=== PATIENT | male | born 1955 | race Caucasian/White ===

== ENCOUNTER → 2017-07-26 10:07 | Outpatient (CLI) | payer BC, SELFPAY ==
[2017-07-26 10:45] LABS: Basophils % 0.5 % (0.1-2.0); Eosinophils # 0.1 K/mm3 (0.0-0.4); Eosinophils % 1.5 % (0.1-12.0); Hemoglobin 14.4 g/dL (14.1-18.0); Lymphocytes # 1.4 K/mm3 (0.7-4.5); Lymphocytes % 33.9 K/mm3 (10-50); Mean Corpuscular HGB Conc 33.4 g/dL (31.8-35.4); Mean Corpuscular Hemoglobin 31.2 pg (27.0-31.2); Mean Corpuscular Volume 93.3 fl (80-94); Mean Platelet Volume 8.2 fl (7.4-10.4); Monocytes # 0.2 K/mm3 (0.1-1.0); Monocytes % 4.7 % (1.7-9.3); Neutrophils # 2.4 K/mm3 (1.8-7.8); Neutrophils % 59.3 % (37.0-80.0); Platelet Count 179 K/mm3 (142-424); Red Blood Count 4.61 M/mm3 (4.60-6.20); White Blood Count 4.1 K/mm3 (4.8-10.8)
[2017-07-26 12:03] LABS: Alanine Aminotransferase 31 U/L (12-78); Albumin Level 4.1 gm/dL (3.4-5.0); Albumin/Globulin Ratio 1.5 (1.1-1.8); Alkaline Phosphatase 48 U/L (46-116); Anion Gap 10.5 mEq/L (5-15); Aspartate Amino Transferase 19 U/L (15-37); Bilirubin,Total 0.2 mg/dL (0.2-1.0); Blood Urea Nitrogen 12 mg/dL (7-18); Calcium 9.4 mg/dL (8.5-10.1); Carbon Dioxide 30 mmol/L (21.0-32.0); Chloride 109 mmol/L (98-107); Chol/HDL Ratio 2.1 (1-3.5); Cholesterol 124 mg/dL (140-200); Creatine Kinase 147 U/L (39-308); Estimated Glomerular Filt Rate 86 ml/min (>60); GFR (African American) 104 ML/MIN (>60); Globulin 2.7 gm/dl (1.3-3.2); Glucose 118 mg/dL (74-106); HDL Cholesterol 58 mg/dL (27-67); LDL Cholesterol 60 mg/dL (0-130); Potassium 4.5 mmoL/L (3.5-5.1); Sodium 145 mmol/L (136-145); Total Protein,Serum 6.8 gm/dL (6.4-8.2); Triglycerides 28 mg/dL (30-200); VLDL Cholesterol 6 mg/dL (0-40)
[2017-07-27 06:04] LABS: Vitamin D 25 Hydroxy 39.6 ng/mL (30.0-100.0)
== END ==
PROVIDERS: Visit Provider Internal Medicine Adolescent Medicine
DX: E78.5 Hyperlipidemia, unspecified (principal); I25.10 Atherosclerotic heart disease of native coronary artery without angina pectoris; M79.1 Myalgia
CPT/HCPCS: 36415; 80053; 80061; 82550; 82652; 85025

== ENCOUNTER → 2018-03-01 08:37 | Outpatient (CLI) | payer BC, SELFPAY ==
--- NOTE | 2018-03-01 08:57 | XR_ITS ---
XR hand LT min 3V HISTORY: Posttraumatic pain ITS.REASON: INJURY OF LEFT RING FINGER ORDERING PHYSICIAN: Hector Patel MD PATIENT AGE: 62 years COMPARISON: None FINDINGS: There is posterior dislocation of the distal phalanx of the fourth finger. No obvious fracture. Otherwise negative. IMPRESSION: Posterior dislocation of the distal phalanx of the ring finger
[2018-03-01 09:08] LABS: Basophils % 0.6 % (0.1-2.0); Eosinophils # 0.1 K/mm3 (0.0-0.4); Eosinophils % 1.7 % (0.1-12.0); Hematocrit 42.5 % (42.0-52.0); Hemoglobin 13.9 g/dL (14.1-18.0); Lymphocytes # 1.4 K/mm3 (0.7-4.5); Lymphocytes % 29.8 % (10-50); Mean Corpuscular HGB Conc 32.8 g/dL (31.8-35.4); Mean Corpuscular Volume 94.7 fl (80-94); Mean Platelet Volume 7.9 fl (7.4-10.4); Monocytes # 0.3 K/mm3 (0.1-1.0); Monocytes % 6.1 % (1.7-9.3); Neutrophils # 2.9 K/mm3 (1.8-7.8); Neutrophils % 61.7 % (37.0-80.0); Platelet Count 171 K/mm3 (142-424); Red Blood Count 4.49 M/mm3 (4.60-6.20); Red Cell Distribution Width 13.3 % (11.5-17.5); White Blood Count 4.6 K/mm3 (4.8-10.8)
[2018-03-01 09:57] LABS: Alanine Aminotransferase 30 U/L (12-78); Albumin Level 3.9 gm/dL (3.4-5.0); Albumin/Globulin Ratio 1.4 (1.1-1.8); Alkaline Phosphatase 43 U/L (46-116); Anion Gap 11.7 mEq/L (5-15); Aspartate Amino Transferase 12 U/L (15-37); Bilirubin,Total 0.3 mg/dL (0.2-1.0); Blood Urea Nitrogen 17 mg/dL (7-18); Calcium 8.9 mg/dL (8.5-10.1); Carbon Dioxide 30 mmol/L (21.0-32.0); Chloride 105 mmol/L (98-107); Chol/HDL Ratio 2.1 (1-3.5); Cholesterol 143 mg/dL (140-200); Creatinine,Serum 0.93 mg/dL (0.70-1.30); Estimated Glomerular Filt Rate 82 ml/min (>60); GFR (African American) 100 ML/MIN (>60); Globulin 2.8 gm/dl (1.3-3.2); Glucose 119 mg/dL (74-106); HDL Cholesterol 69 mg/dL (27-67); LDL Cholesterol 66 mg/dL (0-130); Potassium 4.7 mmoL/L (3.5-5.1); Sodium 142 mmol/L (136-145); Total Protein,Serum 6.7 gm/dL (6.4-8.2); Triglycerides 39 mg/dL (30-200); VLDL Cholesterol 8 mg/dL (0-40)
== END ==
LOC: LAB 08:38 → RAD 08:51
PROVIDERS: PCP Internal Medicine Adolescent Medicine; Visit Provider Internal Medicine Adolescent Medicine
DX: E78.5 Hyperlipidemia, unspecified (principal); I25.10 Atherosclerotic heart disease of native coronary artery without angina pectoris; S60.945A Unspecified superficial injury of left ring finger, initial encounter
CPT/HCPCS: 36415; 73130; 80053; 80061; 85025

== ENCOUNTER → 2019-01-18 11:08 | Outpatient (CLI) | payer BC, SELFPAY ==
[2019-01-18 11:33] LABS: Basophils % 0.4 % (0.1-2.0); Eosinophils # 0.1 K/mm3 (0.0-0.4); Hematocrit 41.1 % (42.0-52.0); Hemoglobin 13.1 g/dL (14.1-18.0); Lymphocytes # 1.2 K/mm3 (0.7-4.5); Lymphocytes % 17.3 % (10-50); Mean Corpuscular HGB Conc 31.9 g/dL (31.8-35.4); Mean Corpuscular Volume 94.1 fl (80-94); Mean Platelet Volume 8.4 fl (7.4-10.4); Monocytes # 0.3 K/mm3 (0.1-1.0); Monocytes % 4.1 % (1.7-9.3); Neutrophils # 5.2 K/mm3 (1.8-7.8); Neutrophils % 77.1 % (37.0-80.0); Platelet Count 183 K/mm3 (142-424); Red Blood Count 4.36 M/mm3 (4.60-6.20); Red Cell Distribution Width 13.5 % (11.5-17.5); White Blood Count 6.7 K/mm3 (4.8-10.8)
[2019-01-18 13:23] LABS: Alanine Aminotransferase 22 U/L (12-78); Albumin Level 4.1 gm/dL (3.4-5.0); Albumin/Globulin Ratio 1.5 (1.1-1.8); Alkaline Phosphatase 49 U/L (46-116); Anion Gap 13.3 mEq/L (5-15); Aspartate Amino Transferase 18 U/L (15-37); Bilirubin,Total 0.6 mg/dL (0.2-1.0); Blood Urea Nitrogen 13 mg/dL (7-18); Calcium 9.5 mg/dL (8.5-10.1); Carbon Dioxide 28 mmol/L (21.0-32.0); Chloride 104 mmol/L (98-107); Chol/HDL Ratio 1.9 (1-3.5); Cholesterol 129 mg/dL (140-200); Estimated Glomerular Filt Rate 85 ml/min (>60); GFR (African American) 103 ML/MIN (>60); Globulin 2.7 gm/dl (1.3-3.2); Glucose 108 mg/dL (74-106); HDL Cholesterol 67 mg/dL (27-67); LDL Cholesterol 54 mg/dL (0-130); Potassium 4.3 mmoL/L (3.5-5.1); Sodium 141 mmol/L (136-145); Total Protein,Serum 6.8 gm/dL (6.4-8.2); Triglycerides 41 mg/dL (30-200); VLDL Cholesterol 8 mg/dL (0-40)
== END ==
PROVIDERS: Visit Provider Nurse Practitioner Family
DX: E78.5 Hyperlipidemia, unspecified (principal); I25.10 Atherosclerotic heart disease of native coronary artery without angina pectoris
CPT/HCPCS: 36415; 80053; 80061; 85025

== ENCOUNTER → 2019-11-13 09:44 | Outpatient (CLI) | payer BC, SELFPAY ==
[2019-11-13 10:04] LABS: Basophils % 0.7 % (0.1-2.0); Eosinophils # 0.2 K/mm3 (0.0-0.4); Eosinophils % 3.6 % (0.1-12.0); Hematocrit 39.5 % (42.0-52.0); Hemoglobin 14.2 g/dL (14.1-18.0); Lymphocytes % 37.4 % (10-50); Mean Corpuscular HGB Conc 35.9 g/dL (31.8-35.4); Mean Corpuscular Hemoglobin 32.4 pg (27.0-31.2); Mean Corpuscular Volume 90.4 fl (80-94); Mean Platelet Volume 9.4 fl (7.4-10.4); Monocytes # 0.3 K/mm3 (0.1-1.0); Monocytes % 4.7 % (1.7-9.3); Neutrophils # 2.9 K/mm3 (1.8-7.8); Neutrophils % 53.5 % (37.0-80.0); Platelet Count 124 K/mm3 (142-424); Red Blood Count 4.36 M/mm3 (4.60-6.20); Red Cell Distribution Width 13.4 % (11.5-17.5); White Blood Count 5.4 K/mm3 (4.8-10.8)
[2019-11-13 10:31] LABS: Alanine Aminotransferase 19 U/L (12-78); Albumin Level 4.4 g/dl (3.5-5.0); Albumin/Globulin Ratio 1.8 (1.1-1.8); Alkaline Phosphatase 44 U/L (38-126); Anion Gap 12.5 mEq/L (5-15); Aspartate Amino Transferase 25 U/L (17-59); Bilirubin,Total 0.4 mg/dl (0.2-1.3); Blood Urea Nitrogen 16 mg/dl (9-20); Calcium 9.5 mg/dl (8.4-10.2); Carbon Dioxide 32 mmol/L (22.0-30.0); Chloride 102 mmol/L (98-107); Chol/HDL Ratio 1.9 (1-3.5); Cholesterol 128 mg/dl (140-200); Estimated Glomerular Filt Rate 98 ml/min (>60); GFR (African American) 118 ML/MIN (>60); Globulin 2.4 g/dL (1.3-3.2); Glucose 115 mg/dl (74-100); HDL Cholesterol 66 mg/dl (40-60); Potassium 4.5 mmoL/L (3.5-5.1); Sodium 142 mmol/L (136-145); Total Protein,Serum 6.8 g/dl (6.3-8.2); Triglycerides 40 mg/dl (30-150); VLDL Cholesterol 8 mg/dL (0-40)
[2019-11-13 10:42] LABS: Direct LDL Cholesterol 59.82 mg/dL (100-129)
[2019-11-13 11:02] LABS: Prostate Specific Ag Screen 1.7 ng/ml (0.0-4.0)
== END ==
PROVIDERS: Visit Provider Internal Medicine Adolescent Medicine
DX: E78.5 Hyperlipidemia, unspecified (principal); I25.10 Atherosclerotic heart disease of native coronary artery without angina pectoris; Z12.5 Encounter for screening for malignant neoplasm of prostate
CPT/HCPCS: 36415; 80053; 80061; 85025; G0103

== ENCOUNTER → 2020-09-12 09:17 | Outpatient (CLI) | payer BC, SELFPAY ==
[2020-09-12 10:13] LABS: Basophils % 0.7 % (0.1-2.0); Eosinophils # 0.1 K/mm3 (0.0-0.4); Eosinophils % 1.9 % (0.1-12.0); Hematocrit 38.4 % (42.0-52.0); Lymphocytes # 1.7 K/mm3 (0.7-4.5); Lymphocytes % 28.4 % (10-50); Mean Corpuscular HGB Conc 33.9 g/dL (31.8-35.4); Mean Corpuscular Hemoglobin 31.3 pg (27.0-31.2); Mean Corpuscular Volume 92.4 fl (80-94); Mean Platelet Volume 8.6 fl (7.4-10.4); Monocytes # 0.4 K/mm3 (0.1-1.0); Monocytes % 5.9 % (1.7-9.3); Neutrophils # 3.7 K/mm3 (1.8-7.8); Platelet Count 173 K/mm3 (142-424); Red Blood Count 4.15 M/mm3 (4.60-6.20); Red Cell Distribution Width 13.5 % (11.5-17.5); White Blood Count 5.9 K/mm3 (4.8-10.8)
[2020-09-12 10:26] LABS: Chloride 104 mmol/L (98-107); Potassium 4.6 mmoL/L (3.5-5.1); Sodium 139 mmol/L (136-145)
[2020-09-12 10:29] LABS: Alanine Aminotransferase 21 U/L (12-78); Albumin Level 4.4 g/dl (3.5-5.0); Albumin/Globulin Ratio 1.8 (1.1-1.8); Alkaline Phosphatase 54 U/L (38-126); Anion Gap 12.6 mEq/L (5-15); Aspartate Amino Transferase 26 U/L (17-59); Bilirubin,Total 0.5 mg/dl (0.2-1.3); Blood Urea Nitrogen 19 mg/dl (9-20); Calcium 9.2 mg/dl (8.4-10.2); Carbon Dioxide 27 mmol/L (22.0-30.0); Cholesterol 126 mg/dl (140-200); Estimated Glomerular Filt Rate 85 ml/min (>60); GFR (African American) 103 ML/MIN (>60); Globulin 2.4 g/dL (1.3-3.2); Glucose 114 mg/dl (74-100); Total Protein,Serum 6.8 g/dl (6.3-8.2); Triglycerides 65 mg/dl (30-150); VLDL Cholesterol 13 mg/dL (0-40)
[2020-09-12 10:30] LABS: Chol/HDL Ratio 2.4 (1-3.5); HDL Cholesterol 53 mg/dl (40-60)
[2020-09-12 10:41] LABS: Direct LDL Cholesterol 56.02 mg/dL (100-129)
== END ==
PROVIDERS: Visit Provider Internal Medicine Adolescent Medicine
DX: I25.10 Atherosclerotic heart disease of native coronary artery without angina pectoris (principal); E78.5 Hyperlipidemia, unspecified
CPT/HCPCS: 36415; 80053; 80061; 85025

== ENCOUNTER → 2021-01-09 10:25 | Outpatient (CLI) | payer MEDICARE, BC, SELFPAY ==
[2021-01-09 10:39] LABS: Basophils # 0.1 K/mm3 (0-0.2); Eosinophils # 0.1 K/mm3 (0.0-0.4); Eosinophils % 2.2 % (0.1-12.0); Hematocrit 42.8 % (42.0-52.0); Hemoglobin 13.9 g/dL (14.1-18.0); Lymphocytes # 1.6 K/mm3 (0.7-4.5); Lymphocytes % 28.8 % (10-50); Mean Corpuscular HGB Conc 32.5 g/dL (31.8-35.4); Mean Corpuscular Hemoglobin 31.2 pg (27.0-31.2); Mean Corpuscular Volume 95.9 fl (80-94); Mean Platelet Volume 9.5 fl (7.4-10.4); Monocytes # 0.3 K/mm3 (0.1-1.0); Monocytes % 5.8 % (1.7-9.3); Neutrophils # 3.4 K/mm3 (1.8-7.8); Neutrophils % 62.2 % (37.0-80.0); Platelet Count 170 K/mm3 (142-424); Red Blood Count 4.46 M/mm3 (4.60-6.20); Red Cell Distribution Width 14.1 % (11.5-17.5); White Blood Count 5.5 K/mm3 (4.8-10.8)
[2021-01-09 12:22] LABS: Chloride 105 mmol/L (98-107); Potassium 4.5 mmoL/L (3.5-5.1); Sodium 140 mmol/L (136-145)
[2021-01-09 12:24] LABS: Blood Urea Nitrogen 17 mg/dl (9-20); Estimated Glomerular Filt Rate 97 ml/min (>60); GFR (African American) 117 ML/MIN (>60)
[2021-01-09 12:25] LABS: Alanine Aminotransferase 19 U/L (12-78); Albumin Level 4.1 g/dl (3.5-5.0); Albumin/Globulin Ratio 1.7 (1.1-1.8); Alkaline Phosphatase 63 U/L (38-126); Anion Gap 12.5 mEq/L (5-15); Aspartate Amino Transferase 30 U/L (17-59); Bilirubin,Total 0.5 mg/dl (0.2-1.3); Calcium 9.5 mg/dl (8.4-10.2); Carbon Dioxide 27 mmol/L (22.0-30.0); Chol/HDL Ratio 2.4 (1-3.5); Cholesterol 129 mg/dl (140-200); Globulin 2.4 g/dL (1.3-3.2); Glucose 92 mg/dl (74-100); HDL Cholesterol 54 mg/dl (40-60); Total Protein,Serum 6.5 g/dl (6.3-8.2); Triglycerides 75 mg/dl (30-150); VLDL Cholesterol 15 mg/dL (0-40)
== END ==
PROVIDERS: Visit Provider Internal Medicine Adolescent Medicine
DX: I25.10 Atherosclerotic heart disease of native coronary artery without angina pectoris (principal); E78.5 Hyperlipidemia, unspecified
CPT/HCPCS: 36415; 80053; 80061; 85025

== ENCOUNTER → 2021-03-13 10:19 | Outpatient (CLI) | payer MEDICARE, BC, SELFPAY ==
--- NOTE | 2021-03-13 10:33 | XR_ITS ---
PROCEDURE: XR CHEST 2V CLINICAL HISTORY: LOBAR PNEUMONIA COMPARISON: No exams were available for comparison FINDINGS: The cardiomediastinal silhouette and pulmonary vascularity are within normal limits. Increased markings left lung base posteriorly consistent with an area of atelectasis or infiltrate. Coronary artery calcification noted. There is minimal blunting of the left CP angle suggesting trace effusion. No acute bony abnormalities. IMPRESSION: Left posterior basilar atelectasis or infiltrate with possible trace effusion Dictated by: Alexander Medina MD 03/13/2021 16:38 Alexander Medina MD in [place] 03/13/2021 16:38
[2021-03-13 11:03] LABS: Basophils # 0.1 K/mm3 (0-0.2); Basophils % 0.6 % (0.1-2.0); Eosinophils # 0.1 K/mm3 (0.0-0.4); Eosinophils % 1.3 % (0.1-12.0); Hematocrit 44.7 % (42.0-52.0); Hemoglobin 15.4 g/dL (14.1-18.0); Lymphocytes # 1.4 K/mm3 (0.7-4.5); Lymphocytes % 16.4 % (10-50); Mean Corpuscular HGB Conc 34.4 g/dL (31.8-35.4); Mean Corpuscular Hemoglobin 31.9 pg (27.0-31.2); Mean Corpuscular Volume 92.8 fl (80-94); Mean Platelet Volume 8.2 fl (7.4-10.4); Monocytes # 0.4 K/mm3 (0.1-1.0); Monocytes % 4.6 % (1.7-9.3); Neutrophils # 6.4 K/mm3 (1.8-7.8); Neutrophils % 77.1 % (37.0-80.0); Platelet Count 174 K/mm3 (142-424); Red Blood Count 4.82 M/mm3 (4.60-6.20); Red Cell Distribution Width 13.3 % (11.5-17.5); White Blood Count 8.3 K/mm3 (4.8-10.8)
[2021-03-13 12:09] LABS: Alanine Aminotransferase 21 U/L (12-78); Albumin Level 4.7 g/dl (3.5-5.0); Albumin/Globulin Ratio 1.6 (1.1-1.8); Alkaline Phosphatase 70 U/L (38-126); Aspartate Amino Transferase 28 U/L (17-59); Bilirubin,Total 0.8 mg/dl (0.2-1.3); Blood Urea Nitrogen 13 mg/dl (9-20); Calcium 9.8 mg/dl (8.4-10.2); Carbon Dioxide 30 mmol/L (22.0-30.0); Chloride 97 mmol/L (98-107); Estimated Glomerular Filt Rate 75 ml/min (>60); GFR (African American) 91 ML/MIN (>60); Globulin 2.9 g/dL (1.3-3.2); Glucose 124 mg/dl (74-100); Sodium 136 mmol/L (136-145); Total Protein,Serum 7.6 g/dl (6.3-8.2)
== END ==
PROVIDERS: Visit Provider Internal Medicine Adolescent Medicine
DX: J18.1 Lobar pneumonia, unspecified organism (principal)
CPT/HCPCS: 36415; 71046; 80053; 85025; 87040; 87070; 87205

== ENCOUNTER → 2022-01-14 10:48 | Outpatient (CLI) | payer MEDICARE, BC, SELFPAY ==
[2022-01-14 11:36] LABS: Basophils % 0.5 % (0.1-2.0); Eosinophils # 0.1 K/mm3 (0.0-0.4); Eosinophils % 1.8 % (0.1-12.0); Hematocrit 42.7 % (42.0-52.0); Hemoglobin 13.3 g/dL (14.1-18.0); Lymphocytes # 1.3 K/mm3 (0.7-4.5); Lymphocytes % 27.4 % (10-50); Mean Corpuscular HGB Conc 31.3 g/dL (31.8-35.4); Mean Corpuscular Hemoglobin 30.4 pg (27.0-31.2); Mean Corpuscular Volume 97.3 fl (80-94); Mean Platelet Volume 8.6 fl (7.4-10.4); Monocytes # 0.3 K/mm3 (0.1-1.0); Monocytes % 6.5 % (1.7-9.3); Neutrophils % 63.8 % (37.0-80.0); Platelet Count 147 K/mm3 (142-424); Red Blood Count 4.39 M/mm3 (4.60-6.20); White Blood Count 4.8 K/mm3 (4.8-10.8)
[2022-01-14 12:08] LABS: Hemoglobin A1C 5.9 % (4.0-6.0)
[2022-01-14 12:22] LABS: Chloride 101 mmol/L (98-107); Potassium 4.7 mmoL/L (3.5-5.1); Sodium 139 mmol/L (136-145)
[2022-01-14 12:25] LABS: Alanine Aminotransferase 21 U/L (12-78); Albumin Level 4.5 g/dl (3.5-5.0); Alkaline Phosphatase 51 U/L (38-126); Anion Gap 12.7 mEq/L (5-15); Aspartate Amino Transferase 30 U/L (17-59); Bilirubin,Total 0.5 mg/dl (0.2-1.3); Blood Urea Nitrogen 19 mg/dl (9-20); Carbon Dioxide 30 mmol/L (22.0-30.0); Cholesterol 128 mg/dl (140-200); Estimated Glomerular Filt Rate 84 ml/min (>60); GFR (African American) 102 ML/MIN (>60); Globulin 2.3 g/dL (1.3-3.2); Total Protein,Serum 6.8 g/dl (6.3-8.2); Triglycerides 60 mg/dl (30-150); VLDL Cholesterol 12 mg/dL (0-40)
[2022-01-14 12:26] LABS: Calcium 9.2 mg/dl (8.4-10.2); Chol/HDL Ratio 2.5 (1-3.5); Glucose 100 mg/dl (74-100); HDL Cholesterol 52 mg/dl (40-60)
[2022-01-14 12:37] LABS: Direct LDL Cholesterol 55.13 mg/dL (100-129)
== END ==
PROVIDERS: PCP Internal Medicine Adolescent Medicine; Visit Provider Internal Medicine Adolescent Medicine
DX: I25.10 Atherosclerotic heart disease of native coronary artery without angina pectoris (principal); E78.5 Hyperlipidemia, unspecified; K21.00 Gastro-esophageal reflux disease with esophagitis, without bleeding; Z79.899 Other long term (current) drug therapy
CPT/HCPCS: 36415; 80053; 80061; 83036; 85025

== ENCOUNTER → 2022-12-31 08:51 | Outpatient (CLI) | payer MEDICARE, BC, SELFPAY ==
[2022-12-31 09:27] LABS: Basophils % 0.6 % (0.1-2.0); Eosinophils # 0.1 K/mm3 (0.0-0.4); Eosinophils % 2.4 % (0.1-12.0); Hematocrit 42.5 % (42.0-52.0); Hemoglobin 13.4 g/dL (14.1-18.0); Lymphocytes # 1.4 K/mm3 (0.7-4.5); Lymphocytes % 44.4 % (10-50); Mean Corpuscular HGB Conc 31.6 g/dL (31.8-35.4); Mean Corpuscular Hemoglobin 30.8 pg (27.0-31.2); Mean Corpuscular Volume 97.5 fl (80-94); Mean Platelet Volume 9.6 fl (7.4-10.4); Monocytes # 0.2 K/mm3 (0.1-1.0); Monocytes % 6.2 % (1.7-9.3); Neutrophils # 1.5 K/mm3 (1.8-7.8); Neutrophils % 46.3 % (37.0-80.0); Platelet Count 116 K/mm3 (142-424); Red Blood Count 4.36 M/mm3 (4.60-6.20); Red Cell Distribution Width 13.3 % (11.5-17.5); White Blood Count 3.3 K/mm3 (4.8-10.8)
[2022-12-31 09:53] LABS: Anion Gap 11.6 mEq/L (5-15); Blood Urea Nitrogen 18 mg/dl (9-20); Calcium 8.9 mg/dl (8.4-10.2); Carbon Dioxide 27 mmol/L (22.0-30.0); Chloride 106 mmol/L (98-107); Estimated Glomerular Filt Rate 75 ml/min (>60); GFR (African American) 90 ML/MIN (>60); Glucose 105 mg/dl (74-100); Potassium 4.6 mmoL/L (3.5-5.1); Sodium 140 mmol/L (136-145)
== END ==
PROVIDERS: PCP Internal Medicine Adolescent Medicine; Visit Provider Student in an Organized Health Care Education/Training Program
DX: Z01.818 Encounter for other preprocedural examination (principal)
CPT/HCPCS: 36415; 80048; 85025

== ENCOUNTER → 2023-01-20 11:16 | Outpatient (CLI) | payer MEDICARE, BC, SELFPAY ==
[2023-01-20 12:11] LABS: Chol/HDL Ratio 2.7 (1-3.5); Cholesterol 116 mg/dl (140-200); HDL Cholesterol 43 mg/dl (40-60); Triglycerides 44 mg/dl (30-150); VLDL Cholesterol 9 mg/dL (0-40)
[2023-01-20 12:22] LABS: Direct LDL Cholesterol 60.12 mg/dL (100-129)
== END ==
PROVIDERS: PCP Internal Medicine Adolescent Medicine; Visit Provider Internal Medicine Adolescent Medicine
DX: I25.10 Atherosclerotic heart disease of native coronary artery without angina pectoris (principal)
CPT/HCPCS: 36415; 80061

== ENCOUNTER 2024-12-08 09:04 | Outpatient (CLI) | payer MEDICARE, BC, SELFPAY ==
--- OUTSIDE RECORDS SUMMARY | 2023-10-03 19:45 | XMS_ITS | Encounter Summary ---
Author Organization [facility] Address [address] [id number] Care Team Providers Care Cardroom Hand Name Role Phone Hector Patel MD Primary Care Provider [phone] Reason for Referral * Hospital - Outpatient (Routine) - Closed Specialty Diagnoses / Procedures Referred By Contac t Referred To Contact Sleep Medicine Diagnoses YAAKOV (obstructive sleep apnea) Procedures Inspire Titration Kiran Ontivreos MD [address] [place] [address] Phone: tel: fax: [facility] [address] [address] Phone: tel: fax: Referral ID Status Reason Start Date Expiration Date Visits Re quested Visits Authorized [id number] Closed 08/25/2023 08/24/2024 1 1 Reason for Visit * Hospital - Outpatient (Routine) - Closed Specialty Diagnoses / Procedures Referred By Contac t Referred To Contact Sleep Medicine Diagnoses YAAKOV (obstructive sleep apnea) Procedures Inspire Titration Kiran Ontiveros MD [address] [place] [address] Phone: tel: fax: [facility] [address] [address] Phone: tel: fax: Referral ID Status Reason Start Date Expiration Date Visits Re quested Visits Authorized [id number] Closed 08/25/2023 08/24/2024 1 1 Encounter Details Date Type Department Care Team (Late st Contact Info) Description 10/03/2023 7:45 PM EDT Hospital Encounter [facility] [address] [place] [address] Kiran Ontiveros MD [address] [id number] YAAKOV (obstructive sleep apnea) Social History Tobacco Use Types Packs/Day Years Used Date Smoking Tobacco: Never Passive Smoke Exposure: Never Smokeless Tobacco: Never Alcohol Use Standard Drinks/Week Comments Not Currently 0 (1 standard drink = 0.6 oz pur e alcohol) Sex and Gender Information Value Date Recorded Sex Assigned at Not on file Legal Sex Male 11:35 AM EST Gender Identity Not on file Sexual Orientation Not on file documented as of this encounter Last Filed Vital Signs Vital Sign Reading Time Taken Comments Blood Pressure - - Pulse - - Temperature - - Respiratory Rate - - Oxygen Saturation - - Inhaled Oxygen Concentration - - Weight 78.7 kg (173 lb 8 oz) 10/03/2023 8:54 PM EDT Height 175.3 cm (5' 9.02 ) 10/03/2023 8:54 PM ED T Body Mass Index 25.61 10/03/2023 8:54 PM EDT documented in this encounter Plan of Treatment Not on file documented as of this encounter Procedures Procedure Name Priority Date/Time Associated Diagnosis Comments NPSG Routine 10/04/2023 6:07 AM EDT YAAKOV (obstructive sleep apnea) SCANNED - PULMONARY RESULTS 10/03/2023 documented in this encounter Results * NPSG (10/04/2023 6:07 AM EDT) Narrative Kiran Ontiveros MD - 10/06/2023 3:44 PM EDT Table formatting from the original result was not included. Polysomnography Report Patient Name: Jim Rivas Interpreting Physician: Kiran Ontiveros MD Date of : 1955 Referring Provider: Kiran Ontiveros,* Primary Care Provider: Hector Patel MD Date of Study: Clinical Information 67 y.o. male seen for YAAKOV using Inspire device He has a longstanding history of obstructive sleep apnea. He was initially diagnosed, to his best recollection, in [place] about 10 years ago. He underwent a sleep study and was prescribed CPAP therapy. Subsequently he was seen at [facility] and did not recall the physician but I found a note in his chart that he saw Dr. Morin as recently as June 2020. Due to poor CPAP tolerance he saw Dr. Igor Beck in consultation. An HSAT revealed his AHI to be 22.2 without significant numbers of central events. He underwent hypoglossal nerve stimulator placement on 03/26/2023. His past medical history is significant for CAD with remote IL and dyslipidemia primarily. He underwent device activation in April 2023 I last saw him on 08/25/2023. His functional limits at that time were set at 1.0-2.0 V. His amplitude of the time was 1.3 V. Inspire PSG was ordered. Methods used for Diagnostic Study: Subject was monitored in the sleep laboratory. Electroencephalogram (C3/M2, C4/M1, F3/M2, F4/M1, 01/M2, O2/M1), EOG, EKG, and EMG (chin and bilateral anterior tibialis) were monitored by surface electrodes and recorded utilizing a computerized polygraph. Airflow was recorded by a thermistor and pressure transducer at the nose and mouth and oxygen saturation was recorded by a pulse oximeter. Thoracic and abdominal respiratory movements were recorded on 2 separate channels by respiratory inductive plethysmograph. Sleep stages were scored by standard techniques and abnormal respiratory events, cardiac arrhythmias, and leg movements were analyzed. Polysomnography Results Sleep efficiency 91% Sleep latency 12.5 minutes and REM latency 151 minutes All sleep stages present. Reduction in the total amount of REM sleep. Elevation of the arousal index overall with many of the events being respiratory related Elevation of the PLM index at 49.7 though the PLM arousal index was only 3.3 Oxygen saturation 96% with minimum saturation of 87% Incoming amplitude 1.4 V. Inspire titration initiated at 1.2 V. Voltage was increased incrementally to as high as 2.3 V. A significant positional effect was noted Impression: Optimal amplitude appears to be 2.3 V based upon this study which is significantly higher than his incoming voltage of 1.4 V. Plan: Follow-up in the sleep center and will continue to increase amplitude based upon comfort given the above Follow-up: Sleep Center Electronically signed by: Kiran Ontiveros MD 10/06/23 15:38 EDT us Kiran Ontiveros MD SLEEP CENTER ORDERABLE S Final Result * Pulmonary Results Scan (10/03/2023) us [facility] Onbase PFT ORDERABLES Final Result documented in this encounter Visit Diagnoses Diagnosis YAAKOV (obstructive sleep apnea) Obstructive sleep apnea (adult) (pediatric) documented in this encounter Care Teams Cardroom Hand Relationship Specialty Start Date End Date Hector Patel MD [address] [facility] [address] [place] [address] PCP - General Adolescent Medicine 05/06/23 documented as of this encounter
--- OUTSIDE RECORDS SUMMARY | 2024-12-08 09:08 | XMS_ITS | Clinical Summary ---
Author Organization [facility] Address [address] [place] [address] Care Team Providers Care Major Sales Associate Name Role Phone Hector Patel MD Primary Care Provider [phone] Allergies No known active allergies Medications aspirin 81 MG EC tablet Take 1 tablet by mouth Daily. Active atorvastatin (LIPITOR) 20 MG tablet Take 1 tablet by mouth Daily. Active famotidine (PEPCID) 20 MG tablet Take 1 tablet by mouth. Active Niaspan 1000 MG CR tablet Active lisinopril (PRINIVIL,ZESTR IL) 5 MG tablet Take 1 tablet by mouth Daily. Active coenzyme Q10 100 MG capsule Take 1 capsule by mouth Daily. Active acyclovir (ZOVIRAX) 800 MG tablet Take 1 tablet by mouth Every 12 (Twelve) Hours. 11/17/2023 Active Active Problems Problem Noted Date Diagnosed Date YAAKOV (obstructive sleep apnea) 03/26/2023 Overview (05/06/2023): Poor PAP tolerance Inspire implantation 03/26/23 Old myocardial infarction 01/17/2016 Overview (05/06/2023): From Automated Load;Provider: Amandeep Iyer;Status: Active Coronary arteriosclerosis in [place] artery 01/14 Overview (05/06/2023): From Automated Load;Provider: Amandeep Iyer;Status: Active Hyperlipidemia 01/14/2015 Overview (05/06/2023): From Automated Load;Provider: Amandeep Iyer;Status: Active Immunizations Immunization Administration Dates Next Due -influenza Vac Quardvalent Preservativ 018 Flublok 18+yrs 01/25/2020 Fluzone (or Fluarix & Flulaval for VFC) >6mos ,01/06/2017 Fluzone High-Dose 65+YRS 02/02/2022,01/06/2021 Hepatitis A 02/22/2019,08/22/2018 Pneumococcal Conjugate 20-Valent (PCV20) 023 Pneumococcal Polysaccharide (PPSV23) 04/07/2021 Tdap 08/22/2018 Family History Medical History Relation Name Comments Diabetes Father Parent Heart disease Father Parent Cancer Sister Sibling Relation Name Status Comments Father Parent Sister Sibling Social History Tobacco Use Types Packs/Day Years Used Date Smoking Tobacco: Never Passive Smoke Exposure: Never Smokeless Tobacco: Never Tobacco Cessation:Counseling Given: Not Answered Alcohol Use Standard Drinks/Week Comments Not Currently 0 (1 standard drink = 0.6 oz pur e alcohol) Sex and Gender Information Value Date Recorded Sex Assigned at Not on file Legal Sex Male 11:35 AM EST Gender Identity Not on file Sexual Orientation Not on file Last Filed Vital Signs Vital Sign Reading Time Taken Comments Blood Pressure 128/80 04/26/2024 1:15 PM EST Pulse 60 04/26/2024 1:15 PM EST Temperature 37 C (98.6 F) 04/26/2024 1:15 PM EST Respiratory Rate 16 12/01/2023 1:42 PM EDT Oxygen Saturation 96% 04/26/2024 1:15 PM EST Inhaled Oxygen Concentration - - Weight 79.8 kg (176 lb) 04/26/2024 1:15 PM EST Height 175.3 cm (5' 9 ) 04/26/2024 1:15 PM EST Body Mass Index 25.99 04/26/2024 1:15 PM EST Plan of Treatment Health Maintenance Due Date Last Done Comments LIPID PANEL 1955 COLOGUARD 12/14/2000 COLON CANCER SCREENING 5 YEA R SIGMOIDOSCOPY 12/14/2000 COLONOSCOPY 12/14/2000 COLORECTAL CANCER SCREENING 12/14/2000 CT COLONOGRAPHY 12/14/2000 FECAL OCCULT BLOOD TEST 12/14/2000 FIT Testing (1 year) 12/14/2000 ZOSTER VACCINE (1 of 2) 12/14/2005 ANNUAL WELLNESS VISIT 05/06/2023 HEPATITIS C SCREENING 05/06/2023 COVID-19 Vaccine (3 2023-2 5 season) 2023 04/17/2021, 06/12/2020 INFLUENZA VACCINE 01/03/2025 02/02/2022, , 01/25/2020, Additional history exists TDAP/TD VACCINES (2 - Td or Tdap) 08/22/2028 019 Pneumococcal Vaccine 50+ Completed 08/05/2022, 06/2021 Insurance MEDICARE A & B [facility] Care Teams Major Sales Associate Relationship Specialty Start Date End Date Hector Patel MD [address] [facility] [address] [place] [address] PCP - General Adolescent Medicine 05/06/23
--- OUTSIDE RECORDS SUMMARY | 2024-12-08 09:08 | XMS_ITS | Clinical Summary ---
Author Organization [employer] ([place], [place], [place], [place]) Address [address] [place] [address] Care Team Providers Care Assistant Child Care Teacher Name Role Phone Hector Patel MD Primary Care Provider [phone] Allergies No known active allergies Medications aspirin 81 MG EC tablet Take 1 tablet (81 mg total) by mouth daily. Active lisinopriL (PRINIVIL,ZESTR IL) 5 MG tablet Take 1 tablet (5 mg total) by mouth daily. Active atorvastatin (LIPITOR) 20 MG tablet Take 1 tablet (20 mg total) by mouth daily. Active famotidine (PEPCID) 20 MG tablet Take 1 tablet (20 mg total) by mouth 2 (two) times daily. Active niacin (NIASPAN) 1000 MG CR tablet Take 2 tablets (2,000 mg total) by mouth nightly. Active omega 2-uzo-rpl-fish oil capsule Take 1 capsule (1,000 mg total) by mouth daily. Active coenzyme Q10 100 mg capsule Take 1 capsule (100 mg total) by mouth daily. Active Active Problems Problem Noted Date Diagnosed Date YAAKOV (obstructive sleep apnea) 03/26/2023 Social History Tobacco Use Types Packs/Day Years Used Date Smoking Tobacco: Never Smokeless Tobacco: Never Tobacco Cessation:Counseling Given: Not Answered Alcohol Use Standard Drinks/Week Comments Yes 0 (1 standard drink = 0.6 oz pur e alcohol) Rarely Food Insecurity Answer Date Recorded Food run out past 12 months Not on file 04/05 Food did not last past 12 months Not on file 04/16/2023 Employment Answer Date Recorded Help finding and keeping a job Not on file 0 04/16/2023 Family and Community Support Answer Les e Recorded Help with Day to Day Activities Not on file 04/16/2023 Feeling Lonely or Isolated Not on file 04/16 Educational Attainment Answer Date Glynn rded Speak language other than Estonian at home Not on file 04/16/2023 Want help with school or training Not on file 04/16/2023 Substance Use Answer Date Recorded Used prescription meds for non-medical reasons N ot on file 04/16/2023 Used illegal drugs past 12 months Not on file 04/16/2023 Sex and Gender Information Value Date Recorded Sex Assigned at Not on file Legal Sex Male 5:02 PM CDT Gender Identity Not on file Sexual Orientation Not on file Last Filed Vital Signs Vital Sign Reading Time Taken Comments Blood Pressure 148/77 03/26/2023 3:47 PM EST Pulse 73 03/26/2023 3:47 PM EST Temperature 36.2 C (97.1 F) 03/26/2023 3:43 PM EST Respiratory Rate 16 03/26/2023 3:47 PM EST Oxygen Saturation 98% 03/26/2023 3:47 PM EST Inhaled Oxygen Concentration - - Weight 78.7 kg (173 lb 9.6 oz) 03/26/2023 11:52 AM EST Height 175.3 cm (5' 9 ) 03/26/2023 11:52 AM EST Body Mass Index 25.64 03/26/2023 11:52 AM EST Plan of Treatment Health Maintenance Due Date Last Done Comments CT Colonography 1955 Colonoscopy 1955 Colorectal Cancer Screening 1955 FOBT/FIT 1955 Fit-DNA (Cologuard) 1955 Sigmoidoscopy 1955 Depression Screening (12+) 1967 Hepatitis C Screening 12/14/1973 Shingles Vaccine (Zoster) (1 of 2) 12/14/2005 Medicare Initial AWV [id number] 12/05/2021 COVID-19 VACCINE ( season) 2023, 06/12/2020 Tobacco Cessation Counseling and Screening (12+) 03/26/2024 03/26/2023 Falls Risk Screening 04/05/2024 Influenza Vaccine (#1) 2024 2, 01/06/2021, 01/25/2020 DTAP/TDAP/TD VACCINES (2 - T d or Tdap) 08/22/2028 08/22/2018 Respiratory Syncytial Virus (RSV) Adult or (1 - 1-dose 75+ series) 12/14/2030 Pneumococcal 50+ years Completed 08/05/2022, 2021 Medical Devices Implanted Type Area Video Production Specialist Device Identifier Shelf Expiration Date Model / Serial / Lot Lead Sensng Respir 4340 - [id number] Implanted:Qty: 1 on 03/26/2023 by Igor Beck MD at [facility] IMPLANTS N/A: Chest Wall INSPIRE MEDICAL 01/23/2026 4340 / [id number] / Lead Stimulation 4063 - [id number] Implanted:Qty: 1 on 03/26/2023 by Igor Beck MD at [facility] IMPLANTS N/A: Chest Wall INSPIRE MEDICAL 10/26/2025 4063 / [id number] / Neurostim Impl Plse Gen 3028 - [id number] Implanted:Qty: 1 on 03/26/2023 by Igor Beck MD at [facility] IMPLANTS N/A: Chest Wall INSPIRE MEDICAL 01/10/2026 3028 / [id number] 5C / Insurance MEDICARE PART A B Care Teams Assistant Child Care Teacher Relationship Specialty Start Date End Date Hector Patel MD [address] [place] [address] PCP - General Adolescent Medicine 03/26/23
--- OUTSIDE RECORDS SUMMARY | 2024-12-08 09:08 | XMS_ITS | Referral Summary ---
Author Organization [employer] ([place], [place], [place], [place]) Address [address] [place] [address] Care Team Providers Care L Tacker Name Role Phone Hector Patel MD Primary Care Provider + [phone] Allergies No known active allergies Medications aspirin [...] mg total) by mouth nightly. Active omega 8-rvz-tkh-fish oil capsule Take 1 capsule (1,000 mg [...] Date Glynn rded Speak language other than [place]ian at home Not on file 04/16/2023 Want [...] 03/26/2023 11:52 AM EST Plan of Treatment Not on file Medical Devices Implanted Type Area Railroad Construction Director Device Identifier Shelf Expiration Date Model / Serial / Lot Lead Sensng Respir 4340 - [id number] Implanted:Qty: 1 on 03/26/2023 by Igor Beck MD at [facility] IMPLANTS N/A: Chest Wall INSPIRE MEDICAL 01/23/2026 4340 / [id number] / Lead Stimulation 4063 - [id number] Implanted:Qty: 1 on 03/26/2023 by Igor Beck MD at [facility] IMPLANTS N/A: Chest Wall INSPIRE MEDICAL 10/26/2025 4063 / [id number] / Neurostim Impl Plse Gen 3028 - [id number] Implanted:Qty: 1 on 03/26/2023 by Igor Beck MD at [facility] IMPLANTS N/A: Chest Wall INSPIRE MEDICAL 01/10/2026 3028 / [id number] 5C / Insurance MEDICARE PART A B [employer] Care Teams L Tacker Relationship Specialty Start Date End Date Hector Patel MD [address] [place] [address] PCP - General Adolescent Medicine 03/26/23
[2024-12-08 09:34] LABS: Hematocrit 42.6 % (42.0-52.0); Hemoglobin 14.3 g/dL (14.1-18.0); Immature Granulocytes % 0.2 %; Mean Corpuscular HGB Conc 33.6 g/dL (31.8-35.4); Mean Corpuscular Hemoglobin 31.4 pg (27.0-31.2); Mean Corpuscular Volume 93.4 fl (80-94); Nucleated Red Blood Cells % 0 %; Platelet Count 142 K/mm3 (142-424); Red Blood Count 4.56 M/mm3 (4.60-6.20); Red Cell Distribution Width-SD 43.3 fL; White Blood Count 4.2 K/mm3 (4.8-10.8)
[2024-12-08 09:56] LABS: Albumin Level 4.4 g/dl (3.5-5.0); Chloride 108 mmol/L (98-107); Potassium 4.8 mmoL/L (3.5-5.1); Sodium 140 mmol/L (136-145)
[2024-12-08 09:58] LABS: Blood Urea Nitrogen 20 mg/dl (9-20); Creatinine,Serum 0.90 mg/dl (0.66-1.25); Estimated Glomerular Filt Rate 84 ml/min (>60); GFR (African American) 102 ML/MIN (>60)
[2024-12-08 09:59] LABS: Alanine Aminotransferase 23 U/L (12-78); Albumin/Globulin Ratio 1.7 (1.1-1.8); Alkaline Phosphatase 58 U/L (38-126); Anion Gap 9.8 mEq/L (5-15); Aspartate Amino Transferase 31 U/L (17-59); Bilirubin,Total 0.6 mg/dl (0.2-1.3); Calcium 9.5 mg/dl (8.4-10.2); Carbon Dioxide 27 mmol/L (22.0-30.0); Cholesterol 145 mg/dl (140-200); Globulin 2.6 g/dL (1.3-3.2); Glucose 105 mg/dl (74-100); HDL Cholesterol 52 mg/dl (40-60); Total Protein,Serum 7.0 g/dl (6.3-8.2); Triglycerides 54 mg/dl (30-150)
== END 2024-12-08 23:59 | disposition home or self-care (01) ==
LOC: LAB 09:05
PROVIDERS: PCP Internal Medicine Adolescent Medicine; Visit Provider Internal Medicine Adolescent Medicine
DX: Z12.5 Encounter for screening for malignant neoplasm of prostate (principal); E78.5 Hyperlipidemia, unspecified
CPT/HCPCS: 36415; 80053; 80061; 85025; G0103